=== PATIENT | female | born 1955 | race Caucasian/White ===

== ENCOUNTER → 2017-03-01 | Day surgery (SDC) | payer BC ==
--- NOTE | 2017-03-04 14:49 | PATH ---
Surgical Pathology Report Patient Name: RENEE MATHIS [facility]. Rec. #: [id number] /Age/Gender: 1955 (Age: 61) / F Account: [id number] Location: Taken: 03/01/2017 Received: 03/01/2017 Reported: 03/04/2017 Physicians: Donya Ye M.D. 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 Electronically Signed Rosina Kern M.D. Gross Description Received in formalin, labeled "left breast 1:00 3 CM FN" are multiple cores of vasques and yellow tissue admixed with blood clot having an aggregate are 1 x 0.8 x 0.1 cm. Entirely submitted one cassette. Time to formalin fixation: 2 minutes Total formalin fixation time: Approximately 18 hours (AE)
== END | disposition home or self-care (01) ==
LOC: FRADUS-SUR 13:05
PROVIDERS: ATTEND Surgery Surgical Oncology
PROC: 0HBU3ZX Excision of Left Breast, Percutaneous Approach, Diagnostic (ICD-10-PCS; principal; 2017-03-01)
DX: D24.2 Benign neoplasm of left breast (principal); N60.12 Diffuse cystic mastopathy of left breast
CPT/HCPCS: 19083; 87899; 88305-TC; A4648